=== PATIENT | female | born 1980 | race Caucasian/White ===

== ENCOUNTER 2017-02-19 17:49 | Emergency (ER) | payer MEDICAID ==
--- NOTE | 2017-02-22 16:27 | ER ---
ADMIT: 02/19/2017 RM/LOC: [facility] MR#: [id number] [address] [id number] WALDO RICHARDRI Santa [address] [place] [address] Emergency Room Report SEX: F AGE: 36 : 1980 DATE: 02/19/2017 See T-sheet for complete H and P. ADDENDUM: A 36-year-old female, comes in with some left-sided chest pain. It has been going on for at least 5 hours and is worse with movement, worse with palpation. She does have a long history of anxiety and also has diagnoses of depression and PTSD. She has no history of hypertension, high cholesterol, diabetes, or known coronary artery disease. She does smoke a pack a day. On physical exam, she has reproducible chest pain on palpation. Otherwise, her heart and lung exam is unremarkable. She was obviously anxious and tearful when I interviewed her. She was given Valium 5 mg p.o. and Toradol 30 mg IM, and her symptoms were significantly improved while in the ER. She does feel comfortable going home at this time, and she is discharged home to use ibuprofen t.i.d. for the next 5 days and to follow up with Dr. Rocha as needed. She can return to the ER for any worsening symptoms. Grupo Smith MD/ diane JOB #: [id number] CC: Grupo Smith MD, Attending Physician Philippe Rocha MD, Family Physician
== END 2017-02-19 19:30 | disposition home or self-care (01) ==
LOC: ER 17:49
DX: R07.89 Other chest pain (principal); F41.9 Anxiety disorder, unspecified; F17.210 Nicotine dependence, cigarettes, uncomplicated; J45.909 Unspecified asthma, uncomplicated; Z90.49 Acquired absence of other specified parts of digestive tract; Z90.710 Acquired absence of both cervix and uterus; Z79.899 Other long term (current) drug therapy